=== PATIENT | male | born 1940 | race Caucasian/White ===

== ENCOUNTER 2018-03-23 20:25 | Emergency (ER) | payer MEDICARE ==
[~2018-03-23] VITALS: Ht 177.8 cm; Wt 77.1 kg
[2018-03-23 20:27] VITALS: Ht 177.8 cm; Wt 77.1 kg
[2018-03-23] MEDS ORDERED: CARDIZEM120 MG PO (20:29)
[2018-03-23] MEDS ORDERED: JARDIANCE10 MG PO (20:29)
[2018-03-23] MEDS ORDERED: NORCO 10-325 TA1 TAB PO (20:30)
[2018-03-23] MEDS ORDERED: METOPROLOL TART50 MG PO (20:30)
[2018-03-23] MEDS ORDERED: GLUCOPHAGE1000 MG PO (20:30)
[2018-03-23] MEDS ORDERED: PRAVACHOL40 MG PO (20:31)
[2018-03-23] MEDS ORDERED: BAYER CHEWABLE81 MG (20:31)
[2018-03-24 01:21] VITALS: BP 112/76
== END 2018-03-24 01:22 | disposition other institution (70) ==
LOC: D.ER 20:25
DX: S72.102A Unspecified trochanteric fracture of left femur, initial encounter for closed fracture (principal); W10.9XXA Fall (on) (from) unspecified stairs and steps, initial encounter; Y93.89 Activity, other specified; Y92.019 Unspecified place in single-family (private) house as the place of occurrence of the external cause; S16.1XXA Strain of muscle, fascia and tendon at neck level, initial encounter; E11.9 Type 2 diabetes mellitus without complications; J44.9 Chronic obstructive pulmonary disease, unspecified